=== PATIENT | male | born 1950 | race Caucasian/White ===

== ENCOUNTER → 2023-08-21 08:15 | Outpatient (CLI) | payer MEDICARE, OTHER, SELFPAY ==
--- NOTE | ~2023-08-21 | US_ITS ---
Ultrasound of the Abdominal Aorta INDICATION: Abdominal aneurysm, smoking history TECHNIQUE: Grayscale, color Doppler, and pulsed Doppler images of the aorta and common iliac arteries were obtained. COMPARISON: None. FINDINGS: Maximum vascular dimensions are as follows: Proximal aorta: 2.5 cm Mid aorta: 2.0 cm Distal aorta: 1.6 cm Right common iliac artery: 1.0 cm Left common iliac artery: 1.0 cm There is no evidence of abdominal aortic aneurysm. IMPRESSION: No evidence of abdominal aortic aneurysm. Reviewed, dictated and finalized at location M. F AUDITOR
== END ==
PROVIDERS: PCP Registered Nurse; Visit Provider Registered Nurse
DX: F17.200 Nicotine dependence, unspecified, uncomplicated (principal)
CPT/HCPCS: 76706

== ENCOUNTER 2023-08-27 13:16 | Outpatient (CLI) | payer MEDICARE, OTHER, SELFPAY ==
--- NOTE | ~2023-08-27 | CT_ITS ---
CT Scan of the Chest without Contrast: Clinical Indication: Lung cancer screening, smoking history Technique: Contiguous sections were acquired throughout the chest without intravenous contrast. Dose reduction technique was used on this scan by utilizing automated exposure control and iterative recon struction technique. The dose-length product (DLP) was 76.22 mGy-cm. Findings: There is no evidence of any significant mediastinal, hilar or axillary lymphadenopathy. The mediastin al soft tissues appear normal. There is no evidence of pleural or pericardial effusion. The lungs are clear. No pulmonary nodules or infiltrates are noted. Images through the upper abdomen reveal no abnormalities. Impression: Lung RADS 1: Negative. 12 month follow-up screening CT advised. Reviewed, dictated and finalized at location . ER PRESS TENDER HEAD Impression: Lung RADS 1: Negative. 12 month follow-up screening CT advised.
== END 2023-08-27 13:17 | disposition home or self-care (01) ==
PROVIDERS: PCP Registered Nurse; Visit Provider Registered Nurse
DX: Z12.2 Encounter for screening for malignant neoplasm of respiratory organs (principal); F17.210 Nicotine dependence, cigarettes, uncomplicated
CPT/HCPCS: 71271

== ENCOUNTER 2023-10-23 00:58 | Day surgery (SDC) | payer MEDICARE, OTHER, SELFPAY ==
--- NOTE | 2023-10-21 12:23 | SUR.PREOP ---
Patient called regarding upcoming procedure. Voicemail left regarding appointment times.
[2023-10-23 06:45] VITALS: BP 127/82; PULSE 70; RESP 16; TEMP 36.3; O2SAT 100; BMI 20.5
[2023-10-23] MEDS: LACTATED RINGERS 1,000 ML 150 ML IV CONT (07:10)
--- NOTE | 2023-10-23 07:30 | P.PNAN_ITS ---
Anes - Initial Pre Proc Eval Procedure: Operation Date: 10/23/23 08:00 Proposed Procedures p Colonoscopy - Tony Butt MD Date/Time: 10/23/23 07:30 Surgeon: Tony Butt MD Pre Op Diagnosis: hx of colon polyps Patient Data Age: 73 Gender: M Height: 1.73 m Weight: 61.1 kg Last Vital Signs Temp 97.3 F L 10/23/23 06:45 Pulse 70 10/23/23 06:45 Resp 16 10/23/23 06:45 BP 127/82 10/23/23 06:45 Pulse Ox 100 10/23/23 06:45 O2 Del Method Room Air 10/23/23 06:45 Allergies Allergy/AdvReac Type Severity Reaction Status Date / Time No Known Allergies Allergy Verified 10/23/23 06:55 Home Medications Medication Instructions Recorded Confirmed Type No Home Medications 10/14/23 10/23/23 History Patient hx anesthesia problems: none Family hx anesthesia problems: none Results Review: All pre-operative results and documents have been reviewed as part of the pre- operative evaluation. [facility] Family History Family History (Updated 03/18/14 @ 07:13 by DOCTOR UNKNOWN) Mother Family history of lymphoma, Onset Age: 84 Father Family history of congestive heart failure, Onset Age: 88 Social History Social History Years smoked: 40 Smoking status: Former smoker Tobacco type: cigarettes and cigars Additional smoking assessment comments: Only smoking cigars Alcohol intake: current Substance use: current Substance use type: marijuana Other substance usage details: Daily Living arrangements: with family Spiritual care concerns: No Anes - Eval Final PreProcedure Day of Procedure 10/23/23 07:30 Patient weight: normal Heart: regular rate and rhythm Lungs: clear to auscultation Airway: Mallampati scale class II Neurological: alert and oriented Last oral intake: >/= 8 hours ASA classification: II Emergent: no Anesthetic plan: proceed Anesthesia type and monitoring: general GIVS and standard monitoring Results Review: All pre-operative results and documents have been reviewed as part of the pre- operative evaluation. Informed Consent: The patient's anesthetic plan and its attendant risks and benefits were discussed with the patient/family/POA. Questions were solicited and answers provided to the satisfaction of the patient/family/POA.
--- NOTE | 2023-10-23 07:50 | PM.HPGS ---
History of Present Illness History of Present Illness Consent: Risks, benefits, and alternatives have been discussed and questions answered. Patient agrees to proceed with procedure. Chief complaint: hx of colon polyps Narrative: Steven Francis is a 73 year old male with colon polyp in 2011 Review of Systems Review of Systems: All systems reviewed & are unremarkable except as noted in HPI and below PMFSH Past Medical History Medical History (Updated 10/23/23 @ 07:50 by Tony Butt MD) Colon polyp Family History Family History (Updated 03/18/14 @ 07:13 by DOCTOR UNKNOWN) Mother Family history of lymphoma, Onset Age: 84 Father Family history of congestive heart failure, Onset Age: 88 Social History Social History Years smoked: 40 Smoking status: Former smoker Tobacco type: cigarettes and cigars Additional smoking assessment comments: Only smoking cigars Alcohol intake: current Substance use: current Substance use type: marijuana Other substance usage details: Daily Living arrangements: with family Spiritual care concerns: No Meds Home Medications and Allergies Home Medications Medication Instructions Recorded Confirmed Type No Home Medications 10/14/23 10/23/23 History Allergies Allergy/AdvReac Type Severity Reaction Status Date / Time No Known Allergies Allergy Verified 10/23/23 06:55 Vital Signs Vital Signs - 24 hr 10/23/23 06:45 Temperature 97.3 F L Pulse Rate 70 Respiratory Rate 16 Blood Pressure 127/82 Pulse Oximetry 100 Oxygen Delivery Room Air Exam Const: General: comfortable and no acute distress HENMT: Face/Nose/Sinus: Normal nares present Eyes: General: appearance normal, both eyes and all related structures Neck: Neck: no JVD Resp: Auscultation: clear to auscultation bilaterally Cardio: Rate: regular rate Rhythm: regular rhythm GI: Inspection: non-distended GI Palp: Yes Soft to palpation Skin: General skin exam: normal color Neuro: General: gait normal Speech: normal speech Extrem: General: normal to inspection Psych: Mental Status: mental status grossly normal Assessment and Plan Assessment and plan (1) Colon polyp: Code(s): K63.5 - Polyp of colon Status: Acute Assessment and Plan: colonoscopy
[2023-10-23 08:06] VITALS: BP 110/55; PULSE 60; RESP 18; O2SAT 97
[2023-10-23 08:16] VITALS: BP 105/57; PULSE 58; RESP 20; O2SAT 95
[2023-10-23 08:26] VITALS: BP 115/65; PULSE 58; RESP 20; O2SAT 100
== END 2023-10-23 08:36 | disposition home or self-care (01) ==
PROVIDERS: PCP Registered Nurse; Visit Provider Internal Medicine Gastroenterology
PROC: 0DJD8ZZ Inspection of Lower Intestinal Tract, Via Natural or Artificial Opening Endoscopic (ICD-10-PCS; CPT 45378; principal; 2023-10-23 08:00)
DX: Z12.11 Encounter for screening for malignant neoplasm of colon (principal); K57.30 Diverticulosis of large intestine without perforation or abscess without bleeding; K64.8 Other hemorrhoids; Z86.010 Personal history of colon polyps; F17.290 Nicotine dependence, other tobacco product, uncomplicated; F12.90 Cannabis use, unspecified, uncomplicated
CPT/HCPCS: G0105; J2704; J7120

== ENCOUNTER 2024-06-30 09:15 | Outpatient (CLI) | payer MEDICARE, OTHER, SELFPAY ==
--- NOTE | ~2024-06-30 | MR_ITS ---
MRI of the brain Clinical History: Memory loss Technique: Axial and sagittal T1-weighted images were acquired. These were followed by axial T2-weigh brian, diffusion weighted, gradient, and FLAIR images. Findings: There is no acute infarct, internal hemorrhage or mass lesion. There are minimal chronic wh ite matter changes in the periventricular white matter. Ventricles and subarachnoid spaces are mildly dilated. Orbits are unremarkable. Paranasal sinuses and mastoid air cells are clear. Major intracranial flow voids are intact. Sagittal midline structures are intact. IMPRESSION: No acute infarct, intracranial hemorrhage, or mass lesion. Minimal chronic microvascular ischemic change. Reviewed, dictated and finalized at [facility]. NESS PLANNING ANALYST
== END 2024-06-30 09:16 | disposition home or self-care (01) ==
PROVIDERS: PCP Registered Nurse; Visit Provider Registered Nurse
DX: R41.3 Other amnesia (principal)
CPT/HCPCS: 70551

== ENCOUNTER 2024-07-09 07:32 | Outpatient (CLI) | payer MEDICARE, OTHER, SELFPAY ==
--- NOTE | 2024-07-09 | ECHO_ITS ---
Patient Info Name: Steven Francis Age: 73 years : 1950 Gender: Male Ht: 68 in Wt: 127 lbs BSA: 1.65 m2 HR: 61 bpm BP: 134 / 76 mmHg Technical Quality: Good Exam Date: 07/09/2024 7:54 AM Exam Location: Echo Lab Patient Status: Outpatient Admit Date: 07/09/2024 Staff Ordering Physician: YvonneKimberly NP Paper Guillotine Operator: Tiffani Hall RDCS Attending Provider: YvonneKimberly NP Exam Type: CA echo doppler color flow Study Info Indications R01.1 - Cardiac murmur, unspecified Complete two-dimensional, color flow and Doppler transthoracic echocardiogram is performed. Strain analysis performed. Summary 1. Complete two-dimensional, color flow and Doppler transthoracic echocardiogram is performed. 2. The left ventricle is normal in size with mildly reduced systolic function. The left ventricular ejection fraction is visually estimated to be 45-50%. 3. The aortic valve is not well visualized. The gradients across the aortic valve does not suggest any significant stenosis. There is moderate aortic regurgitation by pressure half time. Left Ventricle The left ventricle is normal in size with mildly reduced systolic function. The left ventricular ejection fraction is visually estimated to be 45-50%. Right Ventricle The right ventricle is normal in size and systolic function. Left Atria The left atrium is normal size. Right Atria The right atrium is normal size. Atrial Septum The atrial septum visually appears intact. Aortic Valve The aortic valve is not well visualized. The gradients across the aortic valve does not suggest any significant stenosis. There is moderate aortic regurgitation by pressure half time. Pulmonic Valve The pulmonic valve is not well visualized. There does not appear to be any color Doppler evidence of pulmonic valve regurgitation. Mitral Valve The mitral valve is normal. There is trace mitral regurgitation. Tricuspid Valve The tricuspid valve is normal. There is trace tricuspid regurgitation. Pericardium/Pleural Pericardium is normal in appearance with no evidence for significant pericardial effusion. Inferior Vena Cava Normal inferior vena cava with >50% collapse upon inspiration consistent with normal right atrial pressure, 3 mmHg. Aorta The aortic root measured at the level of the sinus of Valsalva is 3.3 cm in diameter. Left Ventricular Outflow Tract Name Value Normal LVOT 2D LVOT Diameter 2.0 cm LVOT Doppler LVOT Peak Gradient 4 mmHg LVOT Mean Gradient 2 mmHg LVOT VTI 33 cm LVOT VTI/AV VTI Ratio 0.7 LVOT Stroke Volume 107 ml LVOT CO 4.4 l/min LVOT CI 2.7 l/min/m2 Pulmonic Valve Name Value Normal RVOT Doppler RVOT Peak Gradient 2 mmHg PV Doppler PV Peak Gradient 2 mmHg Mitral Valve Name Value Normal MV Doppler MV Decel Coleman 228 cm/s2 MV PHT 77 ms MV Area (PHT) 2.9 cm2 4.0-5.0 MV Diastolic Function MV E Peak Velocity 60 cm/s MV A Peak Velocity 80 cm/s MV E/A 0.8 MV Decel Time 264 ms Tricuspid Valve Name Value Normal TV Regurgitation Doppler TR Peak Velocity 208 cm/s TR Peak Gradient 17 mmHg Estimated PAP/RSVP RA Pressure 3 mmHg <=5 PA Systolic Pressure 20 mmHg <36 RV Systolic Pressure 20 mmHg <36 Aorta Name Value Normal Ascending Aorta Ao Root Diameter (MM) 3.6 cm Ao Root Diam Index (MM) 2.2 cm/m2 Aortic Valve Name Value Normal AV 2D/MM AV Area (Planimetry) 1.4 cm2 AV Doppler AV Peak Velocity 194 cm/s AV Peak Gradient 12 mmHg AV Mean Gradient 7 mmHg AV VTI 46 cm AV Area (Cont Eq VTI) 2.3 cm2 >=3.0 AV Area (Cont Eq John) 2.0 cm2 AV Regurgitation 2D LVOT Area 3.3 cm2 AV Regurgitation Doppler AR Decel Time 2,222 ms AR Decel Coleman 181 cm/s2 AR PHT 644 ms Ventricles Name Value Normal LV Dimensions 2D/MM IVS Diastolic Thickness (2D) 0.8 cm 0.6-1.0 IVS Diastole Thickness (MM) 1.0 cm 0.6-1.0 LVID Diastole (2D) 5.1 cm 4.2-5.8 LVID Diastole (MM) 5.7 cm 4.2-5.8 LVIW Diastolic Thickness (2D) 0.8 cm 0.6-1.0 LVIW Diastolic Thickness (MM) 0.9 cm 0.6-1.0 LVID Systole (2D) 2.6 cm 2.5-4.0 LVID Systole (MM) 3.7 cm 2.5-4.0 LVOT Diameter 2.0 cm LV Mass (2D Cubed) 146.91 g 88.00-224.00 LV Mass Index (2D Cubed) 89 g/m2 49-115 Relative Wall Thickness (2D) 0.32 LV Mass (MM Cubed) 206.71 g 88.00-224.00 LV Mass Index (MM Cubed) 125 g/m2 49-115 Relative Wall Thickness (MM) 0.32 LV Fractional Shortening/Ejection Fraction 2D/MM LV Fractional Shortening (2D) 48 % 25-43 LV Fractional Shortening (MM) 35 % 25-43 LV EF (MM Teicholz) 63 % 52-72 LV EF (2D Teicholz) 79 % 52-72 LV Diastolic Volume (4C MOD) 99 ml LV EF (4C MOD) 60 % LV Diastolic Volume (2C MOD) 85 ml LV EF (2C MOD) 49 % LV Diastolic Volume (BP MOD) 91 ml 62-150 LV Diastolic Volume Index (BP MOD) 55 ml/m2 34-74 LV Systolic Volume (BP MOD) 44 ml 21-61 LV Systolic Volume Index (BP MOD) 27 ml/m2 11-31 LV EF (BP MOD) 52 % 52-72 LV Diastolic Length (4C) 8.0 cm LV Systolic Length (4C) 6.3 cm LV Stroke Volume (4C MOD) 60 ml Atria Name Value Normal LA Dimensions LA Dimension (MM) 3.5 cm 3.0-4.1 LA Volume (4C A-L) 36 ml LA Volume (BP A-L) 38 ml RA Dimensions RA Area (4C) 12.2 cm2 <=18.0 EchoPAC Name Value Normal AutoEF LVCO_BiP_Q (Urnz8ZZI) 3.8 l/min LVEF_BiP_Q (Ggpm1OXW) 55 % LVSV_BiP_Q (Wddd9TYL) 56 ml LVVED_BiP_Q (Nthm2ASY) 103 ml LVVES_BiP_Q (Kved6EFJ) 47 ml HR_4Ch_Q (Ynvf3YNB) 64 bpm LVCO_4Ch_Q (Jvyi3HOU) 2.8 l/min LVEF_4Ch_Q (Zxzd1ZJT) 51 % LVLd_4Ch_Q (Oimt8VHI) 7.8 cm LVLs_4Ch_Q (Vgig6IBS) 6.6 cm LVSV_4Ch_Q (Jxen3MGE) 43 ml LVVED_4Ch_Q (Jamh7QAS) 85 ml LVVES_4Ch_Q (Nkec8VNW) 42 ml HR_2Ch_Q (Dmba2HVZ) 66 bpm LVCO_2Ch_Q (Vrct1KMO) 4.8 l/min LVEF_2Ch_Q (Jfnn4MSX) 59 % LVLd_2Ch_Q (Urot5XBM) 8.7 cm LVLs_2Ch_Q (Zcnc0WUC) 7.1 cm LVSV_2Ch_Q (Ppcj6XSU) 73 ml LVVED_2Ch_Q (Jmpq9LHU) 123 ml LVVES_2Ch_Q (Nwob9QKF) 51 ml MICKEY AA peak sys SL (AWMA) 17.7 % AAS peak sys SL (AWMA) 27.6 % AI peak sys SL (AWMA) 23.5 % AL peak sys SL (AWMA) 15.7 % AP peak sys SL (AWMA) 26.2 % peak sys SL (AWMA) 21.6 % AVC (AWMA) 411 ms BA peak sys SL (AWMA) 16.7 % BAS peak sys SL (AWMA) 8.9 % BI peak sys SL (AWMA) 20.6 % BL peak sys SL (AWMA) 11.4 % BP peak sys SL (AWMA) 8.8 % BS peak sys SL (AWMA) 13.8 % G peak SL(A2C) (AWMA) 19.5 % G peak SL(A4C) (AWMA) 16.2 % G peak SL(APLAX) (AWMA) 16.5 % G peak SL(Avg) (AWMA) 17.4 % MA peak sys SL (AWMA) 17.3 % MAS peak sys SL (AWMA) 17.6 % RI peak sys SL (AWMA) 23.6 % ML peak sys SL (AWMA) 12.7 % MP peak sys SL (AWMA) 13.8 % MS peak sys SL (AWMA) 26.9 % Report Signatures
--- NOTE | 2024-07-09 12:54 | WPDPFTINT ---
PFT Procedure Performed PFT Procedure Performed Spirometry with Pre/Post Bronchodilator Plethysmography (Lung Vol) Diffusing Cap (DLCO) Flow Vol Loop PFT Interpretation This is a pulmonary function test with pre and post-bronchodilator spirometry, plethysmography and diffusing capacity. The test was performed and results interpreted in accordance with the 2019 and 2005 ATS/ERS Task Force guidelines respectively using the Global Lung Function Initiative-2012 reference equations. Patient demonstrated good effort and cooperation. Reproducibility criteria were met. The quality of the pre bronchodilator spirometry maneuver was Grade U and post bronchodilator spirometry maneuver was Grade U. Of note, the patient had difficulty with all testing. Unable to get acceptable and reproducible spirometry did despite good coating and at least 8 attempts pre bronchodilator and 8 attempts post bronchodilator. Findings: Spirometry: There is decreased maximal expiratory airflow at all lung volumes with flattening of the expiratory flow tracing. The contour the inspiratory flow tracing is normal. The pre bronchodilator FVC is 3.96 L, 103% predicted. The pre bronchodilator FEV1 is 1.20 L, 42% predicted. The pre bronchodilator FEV1: FVC ratio is 30%. The post bronchodilator FVC is 4.19 L, representing a 6% increase. The post bronchodilator FEV1 is 1.19 L, representing 1% decrease. The post bronchodilator FEV1: FVC ratio is 28%. Plethysmography: The total lung capacity is 9.48 L, 142% predicted. The functional residual capacity is 6.20 L, 175% predicted. The residual volume is 4.96 L, 193% predicted. The residual volume: Total lung capacity ratio is 49%. Diffusing capacity: The diffusing capacity unadjusted for hemoglobin and carboxyhemoglobin is 17.4, 71% predicted. The diffusing capacity adjusted for alveolar volume is 2.79, 71% predicted. Impression: The patient was unable to provide acceptable and reproducible spirometry. Using the best available data there is flattening of the expiratory flow tracing with a normal inspiratory flow tracing. This is consistent with a variable intrathoracic obstruction and can be seen with tracheomalacia of the intrathoracic airway, intrathoracic bronchogenic cyst, malignant tracheal lesions and vocal fold abnormalities. Clinical correlation is recommended. Otherwise, there is a severe obstructive abnormality. There is no significant improvement after inhaling a single dose of albuterol. The increase in residual volume to total lung volume ratio is consistent with hyperinflation from an obstructive abnormality. The diffusing capacity is normal. There are no prior studies for comparison
== END 2024-07-09 07:33 | disposition home or self-care (01) ==
LOC: ANHCARD 07:33
PROVIDERS: PCP Registered Nurse; Visit Provider Registered Nurse
DX: R94.2 Abnormal results of pulmonary function studies (principal); I50.20 Unspecified systolic (congestive) heart failure; R01.1 Cardiac murmur, unspecified
CPT/HCPCS: 93306; 94060; 94726; 94729

== ENCOUNTER 2024-09-18 09:01 | Outpatient (CLI) | payer MEDICARE, OTHER, SELFPAY | END 2024-09-18 09:02 | disposition home or self-care (01) | LOC: ANHCARD 09:01 | PROVIDERS: PCP Registered Nurse; Visit Provider Internal Medicine Cardiovascular Disease | DX: I51.9 Heart disease, unspecified (principal); R06.02 Shortness of breath | CPT/HCPCS: 78452; 93017; A9502; J2785 ==